=== PATIENT | female | born 1995 | race Caucasian/White ===

== ENCOUNTER → 2017-04-22 | Outpatient (CLI) | payer OTHER, BC ==
[~2017-04-22] MED LIST: BCPILLS PO; [UNRECOGNIZED DRUG - CODE] NAE
== END | disposition home or self-care (01) ==
LOC: C.LABSPEC 15:18
PROVIDERS: ATTEND Obstetrics & Gynecology
DX: N89.8 Other specified noninflammatory disorders of vagina (principal)

== ENCOUNTER → 2017-04-22 | Outpatient (CLI) | payer OTHER, BC | END | disposition home or self-care (01) | LOC: C.PAPS 15:55 | PROVIDERS: ATTEND Obstetrics & Gynecology | DX: Z01.419 Encounter for gynecological examination (general) (routine) without abnormal findings (principal) ==

== ENCOUNTER 2018-06-02 16:49 | Emergency (ER) | payer OTHER, BC ==
[~2018-06-02] VITALS: Ht 157.5 cm; Wt 56.5 kg
[2018-06-02 17:10] VITALS: TEMP 36.7; Ht 157.5 cm; Wt 56.5 kg
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
[2018-06-02 19:38] VITALS: BP 115/69; PULSE 69; O2SAT 98
== END 2018-06-02 19:38 | disposition home or self-care (01) ==
LOC: C.EDB 16:50 → C.EDD 19:38
DX: S70.311A Abrasion, right thigh, initial encounter (principal); S70.312A Abrasion, left thigh, initial encounter; S00.81XA Abrasion of other part of head, initial encounter; V18.0XXA Pedal cycle driver injured in noncollision transport accident in nontraffic accident, initial encounter; Z79.3 Long term (current) use of hormonal contraceptives; Z91.018 Allergy to other foods